=== PATIENT | female | born 1995 | race Caucasian/White ===

== ENCOUNTER → 2016-06-27 | Outpatient (CLI) | payer OTHER ==
[~2016-06-27] MED LIST: BCP TD; DEXMETHYLPHENID10 MG PO; EFFEXOR 75M75 MG/TAB PO; PREVACID 30MG30 M1 PO; PREVACID30 MG PO; ZYRTEC 10MG10 MG PO
== END ==
LOC: COL.RAD 10:10
DX: R53.83 Other fatigue (principal); R61 Generalized hyperhidrosis; Z97.5 Presence of (intrauterine) contraceptive device

== ENCOUNTER 2018-01-14 16:53 | Emergency (ER) | payer OTHER ==
[~2018-01-14] VITALS: Ht 160 cm; Wt 62.1 kg
[~2018-01-14 16:53] MED LIST changes: -NORCO 325 MG-51 TAB PO
[2018-01-14 17:03] VITALS: TEMP 99.2
[2018-01-14] MEDS ORDERED: NORCO 325 MG-51 TAB PO (17:46)
[2018-01-14 19:04] VITALS: BP 115/70; PULSE 68
== END 2018-01-14 19:04 | disposition home or self-care (01) ==
LOC: COL.ER 16:53
DX: K80.50 Calculus of bile duct without cholangitis or cholecystitis without obstruction (principal)
CPT/HCPCS: J1170; J1200; J1885; J2405; J7030

== ENCOUNTER → 2018-01-14 | Outpatient (CLI) | payer OTHER ==
[~2018-01-14] MED LIST changes: +NORCO 325 MG-51 TAB PO
[2018-01-14 16:31] LABS: BASO % 0.6 % (0.0-2.0); EOS # 0.1 (0.0-0.7); EOS % 1.2 % (0-4.0); GRAN # 2.7 (1.4-6.5); GRAN % 54.3 % (42.2-75.2); HEMATOCRIT 39.3 % (37.0-47.0); LYMPH # 1.8 (1.2-3.4); LYMPH % 36.9 % (20.0-51.0); MEAN CELL VOLUME 92 fl (80.0-100.0); MEAN CORPUSCULAR HEMOGLOBIN 33 pg (27.0-31.0); MEAN CORPUSCULAR HGB CONC 36 g/dl (33.0-37.0); MEAN PLATELET VOLUME 10.2 fl (7.4-10.4); MONO # 0.3 (0.1-0.6); MONO % 6.8 % (1.7-9.3); PLATELET COUNT 277 K/mm3 (130-400); RED BLOOD COUNT 4.29 M/mm3 (4.10-5.30); REDCELL DISTRIBUTION WIDTH-CV 11.4 % (11.5-14.5)
[2018-01-14 16:41] LABS: ALBUMIN 4.5 gm/dL (3.5-5.0); BILIRUBIN,TOTAL 0.3 mg/dL (0.0-1.0); CALCIUM 9.5 mg/dL (8.4-10.2); CREATININE, serum 0.65 mg/dL (0.52-1.25); POTASSIUM 3.8 mmol/L (3.4-5.0); TOTAL PROTEIN 7.9 gm/dL (6.4-8.2)
== END ==
LOC: COL.LAB 16:04
PROVIDERS: Physician Assistant
DX: R10.811 Right upper quadrant abdominal tenderness (principal)

== ENCOUNTER → 2018-01-15 | Outpatient (CLI) | payer OTHER ==
[~2018-01-15] MED LIST changes: +NORCO 325 MG-51 TAB PO
== END ==
LOC: COL.RAD 08:44
DX: R10.11 Right upper quadrant pain (principal)

== ENCOUNTER → 2018-02-05 | Outpatient (CLI) | payer OTHER | LOC: COL.RAD 09:39 | DX: R10.11 Right upper quadrant pain (principal) | CPT/HCPCS: A9537 ==

== ENCOUNTER → 2018-04-11 | Outpatient (CLI) | payer OTHER | LOC: COL.RAD 13:21 | DX: Q51.9 Congenital malformation of uterus and cervix, unspecified (principal) | CPT/HCPCS: A9585 ==

== ENCOUNTER 2020-09-21 05:02 | Inpatient (IN) | payer OTHER ==
[2020-09-21] VITALS (47 sets, daily range): BP systolic 10–190; BP diastolic 51–86; PULSE 80–116; TEMP 97.9–101
[~2020-09-21] VITALS: Ht 162.6 cm; Wt 82.0 kg
[2020-09-21] MEDS ORDERED: PRENATAL TABLET PO (05:43)
[2020-09-21] MEDS ORDERED: PROTONIX20 MG PO (05:43)
--- NOTE | 2020-09-21 06:15 | NUR ---
0615-Recieved bedside report from PANCHITO Mireles. Patient semi-fowlers in bed. IV start at this time, this RN assumed procedure. FHR category I, contractions every 2-3 min. Patient breathing with contrations. Updated on plan of are and pain management techniques. 0643-Patient off EFM to ambulate around room and utilize BB. Mother at bedside with patient massaging back. 0705-Dr. Espinoza on unit. Reviews chart and FHR monitor. In to see patient. Orders to continue to allow patient to move around and intermittently monitor per protocol.
[2020-09-21 06:43] LABS: MEAN CELL VOLUME 99 fl (80.0-100.0); MEAN CORPUSCULAR HEMOGLOBIN 34 pg (27.0-31.0); MEAN CORPUSCULAR HGB CONC 34 g/dl (33.0-37.0); PLATELET COUNT 230 K/mm3 (130-400); RED BLOOD COUNT 3.55 M/mm3 (4.10-5.30)
[2020-09-21 06:48] LABS: HEMATOCRIT 35.1 % (37.0-47.0)
[2020-09-21 07:30] LABS: BAND 2 % (0-10); LYMPHOCYTE 26 % (20.0-51.0); METAMYELOCYTE 1 % (0-0); NEUTROPHILS 66 % (42.0-75.2); PLATELET ESTIMATE NORMAL (NORMAL)
--- NOTE | 2020-09-21 07:35 | NUR ---
0735-Patient sitting upright in bed leaning forward during contractions, difficulty maintaining continuous FHR tracing. Requests epidural. García [employer] AND TRIM WORKER notified.
--- NOTE | 2020-09-21 08:03 | NUR ---
0803-JEFFREY García to unit. Patient sitting upright on bedside for epidural placement. Difficullty maintaining continous tracing in FHR due to maternal positioning. 0811-SS administered by JEFFREY García. Patient tolerated procedure well. Repositioned WR in bed. 0822-FHR decel down to 90bpm. RN turns patient to knee chest. Slow return to baseline over 2.5 min. SVE 3/-2. 0835-Dr. Espinoza updated.
--- NOTE | 2020-09-21 11:20 | NUR ---
1120-Dr. Dominick martinez on unit. Reviews FHR monitor, in to see patient. SVE by . Orders to continue to roate positons and monitor.
--- NOTE | 2020-09-21 15:30 | NUR ---
1530- DR. PARK ON UNIT. UPDATED ON RISING BASELINE. FHR BASELINE 160S. MATERNAL PULSE 113. MOST RECENT MATERNAL TEMP 100.1 AXILLARY. MD REVIEWS STRIP AND INTO SEE PT. 1533- SVE PER MD /+1. DANIELLE DISCONTINUED. 1540- BEGAN PUSHING WITH PT. DR. PARK EVALUATES PT PUSH EFFORTS. MD STAYS IN ROOM, AND ASSUMES PUSHING ASSISTANCE. ORAL TEMP TAKEN, 100.0. 1600- DR. PARK CONTINUES TO PUSH WITH PT. ORDERS AMP AND GENT. 1616- AMP GIVEN. 1630- RN ASSUMES PUSHING WITH PT. CONTINUES TO MOVE VERTEX WELL. 1700- MD REQUESTED TO ROOM. SET UP FOR DELIVERY. 170- SPONTANEOUS DELIVERY OF HEAD, ASSISTED BY DR. PARK. IMMEDIATELY FOLLOWED BY BODY. VIABLE MALE PLACED ON MOTHERS ABDOMEN. CARE OF INFANT ASSUMED BY JAYSHREE SYED RN. APGARS 8/9/9. 1708- SPONTANEOUS DELIVERY OF INTACT PLACENTA BY . [employer]. LOCHIA WNL. EBL 250. PITOCIN STARTED PER PROTOCOL AND ORDER. PLACENTA SENT FOR PATHOLOGY PER DR MALAGON AND CHORIO.
[2020-09-22 02:19] VITALS: BP 131/63; PULSE 78; TEMP 98.9
[2020-09-22 06:41] LABS: BASO % 0.2 % (0.0-2.0); EOS # 0.1 (0.0-0.7); EOS % 0.8 % (0-4.0); HEMOGLOBIN 10.2 g/dl (12.5-16.0); LYMPH # 1.7 (1.2-3.4); LYMPH % 11.5 % (20.0-51.0); MEAN CELL VOLUME 101 fl (80.0-100.0); MEAN CORPUSCULAR HEMOGLOBIN 34 pg (27.0-31.0); MEAN CORPUSCULAR HGB CONC 34 g/dl (33.0-37.0); MEAN PLATELET VOLUME 10.4 fl (7.4-10.4); MONO # 0.9 (0.1-0.6); MONO % 5.9 % (1.7-9.3); PLATELET COUNT 192 K/mm3 (130-400); RED BLOOD COUNT 2.98 M/mm3 (4.10-5.30)
[2020-09-22 06:43] LABS: HEMATOCRIT 30.2 % (37.0-47.0)
[2020-09-22 09:00] VITALS: BP 101/55; PULSE 84; TEMP 97.7
--- NOTE | 2020-09-22 10:45 | NUR ---
Initial visit; Patient thanked Activity Manager for offering congratulations and God's blessings for the of her son. Activity Manager thanked family for choosing [facility].
[2020-09-22 12:45] VITALS: BP 108/68; PULSE 88; TEMP 98.6
--- NOTE | 2020-09-22 18:45 | NUR ---
Report recieved at this time. Resting in bed. Whiteboard updated. POC reviewed.
[2020-09-22 20:00] VITALS: BP 104/64; PULSE 80; TEMP 98.8
[2020-09-22 20:31] VITALS: BP 98/59; PULSE 80; TEMP 98.3
[2020-09-23 06:48] VITALS: BP 93/56; PULSE 77; TEMP 98.6
[2020-09-23 07:04] LABS: MEAN CELL VOLUME 101 fl (80.0-100.0); MEAN CORPUSCULAR HGB CONC 34 g/dl (33.0-37.0); MEAN PLATELET VOLUME 10.4 fl (7.4-10.4); PLATELET COUNT 194 K/mm3 (130-400); RED BLOOD COUNT 2.83 M/mm3 (4.10-5.30)
[2020-09-23 07:05] LABS: HEMATOCRIT 28.5 % (37.0-47.0); HEMOGLOBIN 9.7 g/dl (12.5-16.0); MEAN CORPUSCULAR HEMOGLOBIN 34 pg (27.0-31.0)
[2020-09-23] MEDS ORDERED: IBU800 M1 PO (08:22)
[2020-09-23 15:58] VITALS: BP 138/85; PULSE 83; TEMP 98.2
== END 2020-09-23 18:35 | disposition home or self-care (01) | DRG 805 ==
LOC: LDRO 05:02 → OB 06:00 → LDR 06:00 → OB 22:00
PROVIDERS: ADMIT Student in an Organized Health Care Education/Training Program
PROC: 10E0XZZ Delivery of Products of Conception, External Approach (ICD-10-PCS; principal; 2020-09-21)
PROC: 0KQM0ZZ Repair Perineum Muscle, Open Approach (ICD-10-PCS; 2020-09-21)
DX: O99.284 Endocrine, nutritional and metabolic diseases complicating childbirth (principal); O41.1230 Chorioamnionitis, third trimester, not applicable or unspecified; Z37.0 Single live birth; E28.2 Polycystic ovarian syndrome; Z3A.38 38 weeks gestation of pregnancy; O99.62 Diseases of the digestive system complicating childbirth; K21.9 Gastro-esophageal reflux disease without esophagitis; E55.9 Vitamin D deficiency, unspecified
CPT/HCPCS: J0290; J1580; J2590; J7120

== ENCOUNTER → 2020-09-28 | Outpatient (CLI) | payer OTHER ==
[~2020-09-28] MED LIST changes: +IBU800 M1 PO; +PRENATAL TABLET PO; +PROTONIX20 MG PO
--- NOTE | 2020-09-28 15:39 | NUR ---
Pt, Juaquin Millerin, presents for outpatient consult with one week old baby boy, Keven Rodgers because he is not latching, even with the nipple shield. She is accompanied by her spouse. Keven was born on [birth year] and weighed 7#12.2oz (3520 gms). Discharge weight was 7#5oz. The family was using SNS on day of discharge, and pt started pumping. Pt reports Keven weighed 7#5oz at his first doctor appt. three days ago. Today Keven weighs 7#7.7oz (3394 gms). Pt offers Keven the breast at most daytime feedings. He is fed 8+ feeds per 24 hours. If he does not nurse or in the nighttime, Keven is bottle fed 2-2.5oz EBM by bottle. At this appt, direct latch was attempted but Keven did not grasp and hold onto the nipple. Even with the nipple shield, he needs assistance keeping his jaw open to get latched well. Pt states she feels biting on and off throughout the feeding. After Keven has a gain of 2.0oz (58 gms). LC does suck evaluation with a gloved finger and notes Keven does not keep his tongue across the gum and biting is noted. Sublingual frenulum is not noted to be significant, but also we were not able to get him to stretch his tongue across the gum or lip well. Exercises for tongue extension provided, and suggested consult with Dr. Lorenzo at [facility] for more thoughts on tongue mobility. POC: Continue with the nipple shield, supplementing EBM as needed by bottle, and pumping. F/U: Pt to contact this LC after Keven is evaluated by Dr. Lorenzo. Questions invited and answered.
== END ==
LOC: LAC 13:14
DX: Z39.1 Encounter for care and examination of lactating mother (principal); Z71.89 Other specified counseling